=== PATIENT | female | born 1960 | race Caucasian/White ===

== ENCOUNTER 2017-03-06 08:57 | Emergency (ER) | payer BC ==
[2017-03-06] MEDS ORDERED: METHYLPREDNISOLONE PF 125MG/VIAL IM ONE (09:16)
[2017-03-06 09:28] LABS: BASO % 0.4 % (0-6); GRAN % 58.2 % (47-80); HEMATOCRIT 44.4 % (35.0-47.0); HEMOGLOBIN 14.7 gm/dl (11.6-16.0); LYMPH % 29.8 % (16-45); MEAN CELL VOLUME 85.7 fl (81-97); MEAN CORPUSCULAR HEMOGLOBIN 28.4 pg (27-33); MEAN CORPUSCULAR HGB CONC 33.1 g/dl (32-36); MONO % 6.6 % (0-9); PLATELET COUNT 247 K/uL (130-400); RED BLOOD COUNT 5.18 M/uL (3.80-5.40); RED CELL DISTRIBUTION WIDTH 13.2 % (11.5-14.5); WHITE BLOOD COUNT W/O DIFF 5.2 K/uL (4.2-12.2)
--- NOTE | 2017-03-06 09:30 | Emergency Department Record ---
History of Present Illness - General Chief complaint: Itching Stated complaint: POISON BILL Time Seen by Provider: 03/06/17 09:15 Source: Patient Mode of Arrival: Ambulatory Limitations: No limitations - History of Present Illness Initial comments: pt broke out in rash after working in garden. she has had poison bill before. the rash is getting worse MD complaint: Rash Onset/Timin -: Days(s) Hx Tetanus Toxoid Vaccination: Yes Year of Tetanus Vaccination: 2016 Patient Tetanus UTD (within 5 yrs): Yes Location: Face, Chest, LUE, RUE Severity: Moderate Consistency: Constant Improves with: None Context: None Associated symptoms: Itching Treatments Prior to Arrival: Benadryl, Corticosteroid, OTC topical medication, Other Treatment Prior to Arrival Comment:: zyrtec - Related Data Home Medications Medication Instructions Recorded Confirmed Last Taken Furosemide [Lasix] 40 mg PO [id number] 05/15/15 03/06/17 05/15/15 40 Omeprazole [Prilosec] 20 mg PO DAILY 09/20/16 03/06/17 Unknown Previous Rx's Medication Instructions Recorded Cephalexin [Keflex] 500 mg PO QID #30 cap 03/06/17 Prednisone [Prednisone 10Mg] 10 mg PO ASDIR #30 tab 03/06/17 Allergies Allergy/AdvReac Type Severity Reaction Status Date / Time Sulfa (Sulfonamide Allergy Unknown RASH Verified 03/06/17 09:19 Antibiotics) [SULFA(SULFONAMIDE ANTIBIOTICS)] Travel Screening - Travel/Exposure Within Last 30 Days Have you traveled within the last 30 days?: No - Travel/Exposure Within Last Year Have you traveled outside the [place] in the last year?: No - Additonal Travel Details Have you been exposed to anyone with a communicable illness?: No Review of Systems Reviewed: No additional complaints except as noted below Constitutional: Reports: As per HPI. Denies: Chills, Fever, Malaise, Night sweats, Weakness, Weight change Eyes: Reports: As per HPI. Denies: Eye discharge, Eye pain, Photophobia, Vision change ENT: Reports: As per HPI. Denies: Congestion, Dental pain, Ear pain, Epistaxis , Hearing loss, Throat pain Respiratory: Reports: As per HPI. Denies: Cough, Dyspnea, Hemoptysis, Stridor, Wheezes Cardiovascular: Reports: As per HPI. Denies: Arrhythmia, Chest pain, Dyspnea on exertion, Edema, Murmurs, Orthopnea, Palpitations, Paroxysmal nocturnal dyspnea, Rheumatic Fever, Syncope Endocrine: Reports: As per HPI. Denies: Fatigue, Heat or cold intolerance, Polydipsia, Polyuria Gastrointestinal: Reports: As per HPI. Denies: Abdominal pain, Constipation, Diarrhea, Hematemesis, Hematochezia, Melena, Nausea, Vomiting Genitourinary: Reports: As per HPI. Denies: Abnormal menses, Discharge, Dyspareunia, Dysuria, Frequency, Hematuria, Incontinence, Retention, Urgency Musculoskeletal: Reports: As per HPI. Denies: Arthralgia, Back pain, Gout, Joint swelling, Myalgia, Neck pain Skin: Reports: As per HPI. Denies: Bruising, Change in color, Change in hair/ nails, Lesions, Pruritus, Rash Neurological: Reports: As per HPI. Denies: Abnormal gait, Confusion, Headache, Numbness, Paresthesias, Seizure, Tingling, Tremors, Vertigo, Weakness Psychiatric: Reports: As per HPI. Denies: Anxiety, Auditory hallucinations, Depression, Homicidal thoughts, Suicidal thoughts, Visual hallucinations Hematological/Lymphatic: Reports: As per HPI. Denies: Anemia, Blood Clots, Easy bleeding, Easy bruising, Swollen glands Past Medical History - SOCIAL HISTORY Smoking Status: Never smoker Alcohol Use: None Drug Use: None - RESPIRATORY Hx Respiratory Disorders: Yes Hx Asthma: Yes (No prob currently) Hx Bronchitis: Yes (None recent) Hx Sleep Apnea: Yes (mild) Hx of CPAP: No - CARDIOVASCULAR Hx Cardio Disorders: Yes Hx Irregular Heartbeat: Yes (PVC's) - NEURO Hx Neuro Disorders: No - GI Hx GI Disorders: Yes Hx Abdominal Pain: Yes (Occ, diffuse with bloating) Hx Reflux: Yes (Occ-Take Tums or Prilosec prn) - Hx Bladder Problem: Yes (S/p cystocele with fascia sling) Hx UTI: Yes (none recent) - ENDOCRINE Hx Endocrine Disorders: Yes Hx Thyroid Disease: Yes (5 thyroid nodules; thyroidomegaly) - MUSCULOSKELETAL Hx Musculoskeletal Disorders: Yes Hx Arthritis: Yes (Osteoarthritis) - PSYCH Hx Psych Problems: No - HEMATOLOGY/ONCOLOGY Hx Hematology/Oncology Disorders: Yes Hx Cancer: Yes (Skin-basal cell l neck) Family Medical History Any Significant Family History?: Yes Hx Cancer: Father, Mother, Brother/Sister, Grandparents *Cancer Comment: Lung, small bowel, gallbladder, prostate melanoma Hx Diabetes: Grandparents Hx Heart Disease: Mother, Grandparents Hx HTN: Mother, Grandparents Physical Exam - General General Appearance: Alert, Oriented x3, Cooperative, Mild distress - Head Head exam: Normal inspection - Eye Eye exam: Normal appearance, PERRL, EOMI Pupils: Normal accommodation - ENT ENT exam: Normal exam, Mucous membranes moist, Normal external ear exam, Normal orophraynx Ear exam: Normal external inspection. negative: External canal tenderness Nasal Exam: Normal inspection. negative: Discharge, Sinus tenderness Mouth exam: Normal external inspection, Tongue normal Teeth exam: Normal inspection. negative: Dental caries Throat exam: Normal inspection. negative: Tonsillar erythema, Tonsillar exudate - Neck Neck exam: Normal inspection, Full ROM. negative: Tenderness - Respiratory Respiratory exam: Normal lung sounds bilaterally. negative: Respiratory distress - Cardiovascular Cardiovascular Exam: Regular rate, Normal rhythm, Normal heart sounds - GI/Abdominal GI/Abdominal exam: Soft, Normal bowel sounds. negative: Tenderness - Rectal Rectal exam: Deferred - exam: Deferred - Extremities Extremities exam: Normal inspection, Full ROM, Normal capillary refill. negative: Tenderness - Back Back exam: Reports: Normal inspection, Full ROM. Denies: Muscle spasm, Rash noted, Tenderness - Neurological Neurological exam: Alert, CN II-XII intact, Normal gait, Oriented X3 - Psychiatric Psychiatric exam: Normal affect, Normal mood - Skin Skin exam: Dry, Intact, Normal color, Rash, Warm Type of lesion: Rash Distribution of rash: Generalized Description of rash: Crusting, Discharge, Tenderness, Vesicular Course Vital Signs 03/06/17 09:05 Temperature 98.9 F Pulse Rate 87 Respiratory 20 Rate Blood Pressure 136/88 Pulse Ox 100 Medical Decision Making - Lab Data Result diagrams: 03/06/17 09:20 Disposition Disposition: Discharge Clinical Impression: Poison bill dermatitis Disposition: Home, Self-Care Condition: (1) Good Instructions: Poison Bill (ED), Cold Compress or Soak (ED) Additional Instructions: follow up with family doctor. return sooner if worse. benadryl every 6 hours as needed. Prescriptions: Cephalexin [Keflex] 500 mg PO QID #30 cap Prednisone [Prednisone 10Mg] 10 mg PO ASDIR #30 tab Forms: Patient Portal Access, Return to Work/School Quality - Quality Measures Quality Measures: N/A - Blood Pressure Screening Blood Pressure Classification: Pre-Hypertensive BP Reading Systolic Measurement: 136 Diastolic Measurement: 88 Screening for High Blood Pressure: < Normal BP, F/U Not Required > [G8783] Normal BP Follow-up Interventions: No follow-up required
[2017-03-06] MEDS ORDERED: DIPHENHYDRAMINE HCL IV 50 MG/ML VIAL IM ONE (09:41)
== END 2017-03-06 09:56 | disposition home or self-care (01) ==
LOC: ER 08:57
DX: L23.7 Allergic contact dermatitis due to plants, except food (principal)
CPT/HCPCS: 85025; 96372; 99283; J1200; J2930

== ENCOUNTER 2018-01-20 07:37 | Emergency (ER) | payer BC, OTHER ==
--- NOTE | 2018-01-20 08:18 | Emergency Department Record ---
History of Present Illness - General Chief Complaint: Fall Injury Stated Complaint: FELL/LEG AND ANKLE PAIN Time Seen by Provider: 01/20/18 07:49 Source: Patient Mode of Arrival: Ambulatory Limitations: No limitations - History of Present Illness Initial Comments: pt fell on steps injuring l ankle and right lower leg and right fore arm. she did not hit her head. Complaint: Fall Onset/Timin -: Minutes(s) Fall From: Down stairs (#) When Fall Occurred: Just prior to arrival Fall Witnessed: No Place Fall Occurred: Work Loss of Consciousness: None Prolonged Down Time?: No Symptoms Prior to Fall: None Location - Extremities: Left: Ankle, Right: Forearm, Lower Leg Severity scale (1-10): 4 Context: Tripped/slipped Associated Symptoms: Denies - Jessica Coma Scale Eye Response: (4) Open spontaneously Motor Response: (6) Obeys commands Verbal Response: (5) Oriented [place] Total: 15 - Related Data Allergies Allergy/AdvReac Type Severity Reaction Status Date / Time Sulfa (Sulfonamide Allergy Unknown RASH Verified 03/06/17 09:19 Antibiotics) [SULFA(SULFONAMIDE ANTIBIOTICS)] Travel Screening - Travel/Exposure Within Last 30 Days Have you traveled within the last 30 days?: No Review of Systems Reviewed: No additional complaints except as noted below Constitutional: Reports: As per HPI. Denies: Chills, Fever, Malaise, Night sweats, Weakness, Weight change Eyes: Reports: As per HPI. Denies: Eye discharge, Eye pain, Photophobia, Vision change ENT: Reports: As per HPI. Denies: Congestion, Dental pain, Ear pain, Epistaxis , Hearing loss, Throat pain Respiratory: Reports: As per HPI. Denies: Cough, Dyspnea, Hemoptysis, Stridor, Wheezes Cardiovascular: Reports: As per HPI. Denies: Arrhythmia, Chest pain, Dyspnea on exertion, Edema, Murmurs, Orthopnea, Palpitations, Paroxysmal nocturnal dyspnea, Rheumatic Fever, Syncope Endocrine: Reports: As per HPI. Denies: Fatigue, Heat or cold intolerance, Polydipsia, Polyuria Gastrointestinal: Reports: As per HPI. Denies: Abdominal pain, Constipation, Diarrhea, Hematemesis, Hematochezia, Melena, Nausea, Vomiting Genitourinary: Reports: As per HPI. Denies: Abnormal menses, Discharge, Dyspareunia, Dysuria, Frequency, Hematuria, Incontinence, Retention, Urgency Musculoskeletal: Reports: As per HPI. Denies: Arthralgia, Back pain, Gout, Joint swelling, Myalgia, Neck pain Skin: Reports: As per HPI. Denies: Bruising, Change in color, Change in hair/ nails, Lesions, Pruritus, Rash Neurological: Reports: As per HPI. Denies: Abnormal gait, Confusion, Headache, Numbness, Paresthesias, Seizure, Tingling, Tremors, Vertigo, Weakness Psychiatric: Reports: As per HPI. Denies: Anxiety, Auditory hallucinations, Depression, Homicidal thoughts, Suicidal thoughts, Visual hallucinations Hematological/Lymphatic: Reports: As per HPI. Denies: Anemia, Blood Clots, Easy bleeding, Easy bruising, Swollen glands Past Medical History - SOCIAL HISTORY Smoking Status: Never smoker - RESPIRATORY Hx Respiratory Disorders: Yes Hx Asthma: Yes (No prob currently) Hx Bronchitis: Yes (None recent) Hx Sleep Apnea: Yes (mild) Hx of CPAP: No - CARDIOVASCULAR Hx Cardio Disorders: Yes Hx Irregular Heartbeat: Yes (PVC's) - NEURO Hx Neuro Disorders: No - GI Hx GI Disorders: Yes Hx Abdominal Pain: Yes (Occ, diffuse with bloating) Hx Reflux: Yes (Occ-Take Tums or Prilosec prn) - Hx Bladder Problem: Yes (S/p cystocele with fascia sling) Hx UTI: Yes (none recent) - ENDOCRINE Hx Endocrine Disorders: Yes Hx Thyroid Disease: Yes (5 thyroid nodules; thyroidomegaly) - MUSCULOSKELETAL Hx Musculoskeletal Disorders: Yes Hx Arthritis: Yes (Osteoarthritis) - PSYCH Hx Psych Problems: No - HEMATOLOGY/ONCOLOGY Hx Hematology/Oncology Disorders: Yes Hx Cancer: Yes (Skin-basal cell l neck) Family Medical History Any Significant Family History?: Yes Hx Cancer: Father, Mother, Brother/Sister, Grandparents *Cancer Comment: Lung, small bowel, gallbladder, prostate melanoma Hx Diabetes: Grandparents Hx Heart Disease: Mother, Grandparents Hx HTN: Mother, Grandparents Physical Exam - General General Appearance: Alert, Oriented x3, Cooperative, Mild distress - Head Head exam: Normal inspection - Eye Eye exam: Normal appearance, PERRL, EOMI Pupils: Normal accommodation - ENT ENT exam: Normal exam, Mucous membranes moist, Normal external ear exam, Normal orophraynx Ear exam: Normal external inspection. negative: External canal tenderness Nasal Exam: Normal inspection. negative: Discharge, Sinus tenderness Mouth exam: Normal external inspection, Tongue normal Teeth exam: Normal inspection. negative: Dental caries Throat exam: Normal inspection. negative: Tonsillar erythema, Tonsillar exudate - Neck Neck exam: Normal inspection, Full ROM. negative: Tenderness - Respiratory Respiratory exam: Normal lung sounds bilaterally. negative: Respiratory distress - Cardiovascular Cardiovascular Exam: Regular rate, Normal rhythm, Normal heart sounds - GI/Abdominal GI/Abdominal exam: Soft, Normal bowel sounds. negative: Tenderness - Rectal Rectal exam: Deferred - exam: Deferred - Extremities Extremities exam: Normal inspection, Full ROM, Normal capillary refill, Tenderness Image of Full Body: 1 - abrasion and ecchymosis 2 - tender, ecchymosis 3 - swelling, tender, ecchymosis - Back Back exam: Reports: Normal inspection, Full ROM. Denies: Muscle spasm, Rash noted, Tenderness - Neurological Neurological exam: Alert, CN II-XII intact, Normal gait, Oriented X3 - Psychiatric Psychiatric exam: Normal affect, Normal mood - Skin Skin exam: Dry, Intact, Normal color, Warm Course Vital Signs 01/20/18 07:45 Temperature 97.5 F L Pulse Rate [ 73 Pulse Ox Probe] Respiratory 18 Rate Blood Pressure 139/95 [Left Arm] Pulse Ox 99 Disposition Disposition: Discharge Clinical Impression: Left ankle sprain Qualifiers: Encounter type: initial encounter Involved ligament of ankle: unspecified ligament Qualified Code(s): S93.402A - Sprain of unspecified ligament of left ankle, initial encounter Contusion of leg, right Qualifiers: Encounter type: initial encounter Qualified Code(s): S80.11XA - Contusion of right lower leg, initial encounter Disposition: Home, Self-Care Condition: (1) Good Instructions: Ankle Sprain (ED), Contusion in Adults (ED) Additional Instructions: follow up with family doctor. return sooner if worse. ice and elevate. motrin with food Forms: Patient Portal Access Quality - Quality Measures Quality Measures: N/A - Blood Pressure Screening Does Patient Have Any of the Following: No Blood Pressure Classification: Hypertensive Reading Systolic Measurement: 139 Diastolic Measurement: 95 Screening for High Blood Pressure: < Pre-Hypertensive BP, F/U Documented > [ G8950] Pre-Hypertensive Follow-up Interventions: Follow-up with rescreen every year.
--- NOTE | 2018-01-21 10:32 | RADIOLOGY REPORT ---
EXAM: ANKLE LEFT 3 VIEWS HISTORY: PAIN. TECHNIQUE: Three-view left ankle. COMPARISON: None. FINDINGS: Osteopenia. Negative for acute fracture or dislocation. Soft tissues are unremarkable. Ankle mortise is intact. Calcaneal spur. IMPRESSION: OSTEOPENIA. NO ACUTE OSSEOUS ABNORMALITY. JOB NUMBER: [id number] MTDD
--- NOTE | 2018-01-21 10:33 | RADIOLOGY REPORT ---
EXAM: LOWER LEG, RIGHT HISTORY: LEG PAIN. TECHNIQUE: Four views of the right tibia and fibula. COMPARISON: None. FINDINGS: Surgical clips in the posterior knee. Degenerative change of the knee. Osteopenia. Calcaneal spur. Negative for fracture or dislocation. IMPRESSION: NO ACUTE OSSEOUS ABNORMALITY. JOB NUMBER: [id number] MTDD
== END 2018-01-20 08:56 | disposition home or self-care (01) ==
LOC: ER 07:37
DX: S93.402A Sprain of unspecified ligament of left ankle, initial encounter (principal); S80.11XA Contusion of right lower leg, initial encounter; W10.9XXA Fall (on) (from) unspecified stairs and steps, initial encounter; Y92.239 Unspecified place in hospital as the place of occurrence of the external cause; Y99.0 Civilian activity done for income or pay
CPT/HCPCS: 99283

== ENCOUNTER 2019-06-14 11:23 | Emergency (ER) | payer BC, OTHER ==
--- NOTE | 2019-06-14 11:51 | Emergency Department Record ---
History of Present Illness - General Chief Complaint: Bloodborne Pathogen Exposure Stated Complaint: NEEDLE STICK Time Seen by Provider: 06/14/19 11:44 Source: Patient Mode of Arrival: Ambulatory Limitations: No limitations - History of Present Illness Initial comments: 58 yo female presents after an accidental left thumb needle stick at [facility] giving Flu shots. Her tetanus is up to date as is her Hepatitis B. No pain or bleeding. - Jessica Coma Scale Eye Response: (4) Open spontaneously Motor Response: (6) Obeys commands Verbal Response: (5) Oriented [place] Total: 15 - Related Data Allergies Allergy/AdvReac Type Severity Reaction Status Date / Time Sulfa (Sulfonamide Allergy Unknown RASH Unverified 04/11/19 10:52 Antibiotics) [SULFA(SULFONAMIDE ANTIBIOTICS)] Travel Screening - Travel/Exposure Within Last 30 Days Have you traveled within the last 30 days?: No - Travel/Exposure Within Last Year Have you traveled outside the [place] in the last year?: No - Additonal Travel Details Have you been exposed to anyone with a communicable illness?: No - Travel Symptoms Symptom Screening: None Past Medical History - SOCIAL HISTORY Smoking Status: Never smoker Alcohol Use: None Drug Use: None - RESPIRATORY Hx Respiratory Disorders: Yes Hx Asthma: Yes (No prob currently) Hx Bronchitis: Yes (None recent) Hx Sleep Apnea: Yes (mild) Hx of CPAP: No - CARDIOVASCULAR Hx Cardio Disorders: Yes Hx Irregular Heartbeat: Yes (PVC's) - NEURO Hx Neuro Disorders: No - GI Hx GI Disorders: Yes Hx Abdominal Pain: Yes (Occ, diffuse with bloating) Hx Reflux: Yes (Occ-Take Tums or Prilosec prn) - Hx Genitourinary Disorders: Yes Hx Bladder Problem: Yes (S/p cystocele with fascia sling) Hx UTI: Yes (none recent) - ENDOCRINE Hx Endocrine Disorders: Yes Hx Thyroid Disease: Yes (5 thyroid nodules; thyroidomegaly) - MUSCULOSKELETAL Hx Musculoskeletal Disorders: Yes Hx Arthritis: Yes (Osteoarthritis) - PSYCH Hx Psych Problems: No - HEMATOLOGY/ONCOLOGY Hx Hematology/Oncology Disorders: Yes Hx Cancer: Yes (Skin-basal cell l neck) Family Medical History Any Significant Family History?: No Hx Cancer: Father, Mother, Brother/Sister, Grandparents *Cancer Comment: Lung, small bowel, gallbladder, prostate melanoma Hx Diabetes: Grandparents Hx Heart Disease: Mother, Grandparents Hx HTN: Mother, Grandparents Physical Exam - General General Appearance: Alert, Oriented x3, Cooperative, No acute distress Limitations: No limitations - Head Head exam: Atraumatic, Normal inspection - Eye Eye exam: Normal appearance - ENT ENT exam: Normal exam Ear exam: Normal external inspection Nasal Exam: Normal inspection Mouth exam: Normal external inspection - Neck Neck exam: Normal inspection - Cardiovascular Peripheral Pulses: 2+: Radial (L) - Extremities Extremities exam: Full ROM. negative: Normal inspection, Tenderness Image of Hand: 1 - tiny puncture site, clean and dry, no bleeding - Neurological Neurological exam: Alert, Oriented X3 - Psychiatric Psychiatric exam: Normal affect, Normal mood - Skin Skin exam: Other (tiny solitary puncture) Course Vital Signs 06/14/19 11:25 Temperature 97.8 F Pulse Rate 90 Respiratory 18 Rate Blood Pressure 135/82 Pulse Ox 96 - Reevaluation(s) Reevaluation #1: 06/14/19 16:36 The patient is up to date on Tetanus and Hepatitis B We discussed risks of HIV and Hep C are vary low No recommendation for post exposure prophylaxis Disposition Disposition: Discharge Clinical Impression: Needle stick injury of finger Disposition: Home, Self-Care Condition: (1) Good Instructions: Needle Stick Injuries (ED) Additional Instructions: Return as needed Follow up with employee health and your doctor for all final results Forms: Patient Portal Access Time of Disposition: 11:51 Quality - Quality Measures Quality Measures: N/A - Blood Pressure Screening Does Patient Have Any of the Following: No Blood Pressure Classification: Hypertensive Reading Systolic Measurement: 114 Diastolic Measurement: 96 Screening for High Blood Pressure: < Pre-Hypertensive BP, F/U Documented > [G8950] Pre-Hypertensive Follow-up Interventions: Referral to alternative/primary care provider.
[2019-06-14 14:08] LABS: AMPHETAMINE SCREEN URINE NOT DETECTED; BARBITURATE SCREEN URINE NOT DETECTED; BENZODIAZEPINE SCREEN URINE NOT DETECTED; COCAINE SCREEN URINE NOT DETECTED; METHADONE SCREEN URINE NOT DETECTED; METHAMPHETAMINE SCREEN NOT DETECTED; OPIATE SCREEN URINE NOT DETECTED; OXYCODONE SCREEN URINE NOT DETECTED; PHENCYCLIDINE SCREEN URINE NOT DETECTED; PROPOXYPHENE SCREEN URINE NOT DETECTED; THC SCREEN URINE NOT DETECTED; TRICYCLIC ANTIDEPRESSANT SCRN NOT DETECTED
== END 2019-06-14 12:18 | disposition home or self-care (01) ==
LOC: ER 11:23
DX: S60.312A Abrasion of left thumb, initial encounter (principal); W46.1XXA Contact with contaminated hypodermic needle, initial encounter; Y93.F9 Activity, other caregiving; Y92.129 Unspecified place in nursing home as the place of occurrence of the external cause; Y99.0 Civilian activity done for income or pay
CPT/HCPCS: 80305; 87390; 99283